=== PATIENT | male | born 1985 | race African-American/Black ===

== ENCOUNTER 2023-07-21 08:35 | Inpatient (IN) | payer OTHER ==
[2023-07-21 11:52] LABS: EOS % 4.5 % (0-4.5); HEMATOCRIT 42.5 % (35.4-49); HEMOGLOBIN 14.2 GM/dL (11.7-16.9); LYMPH % 40.7 % (8-40); MCH 31.2 pg (25.7-33.7); MCHC 33.5 g/dl (32.0-35.9); MEAN CELL VOLUME 93.2 fl (80-96); MEAN PLT VOLUME 7.4 fl (7.5-11.1); MONO % 10.8 % (3.8-10.2); PLATELET COUNT 360 10^3/uL (134-434); RBC 4.55 M/mm3 (4.00-5.60); RDW 13.1 % (11.9-15.9); WHITE BLOOD COUNT 7.6 K/mm3 (4.0-10.0)
[2023-07-21 12:08] LABS: POTASSIUM 4.5 mmol/L (3.5-5.1)
[2023-07-21 12:10] LABS: ALBUMIN 3.8 g/dl (3.4-5.0); CALCIUM 9.9 mg/dL (8.5-10.1)
[2023-07-21 12:11] LABS: BLOOD UREA NITROGEN 5.2 mg/dL (7-18)
[2023-07-21 12:14] LABS: CREATININE 0.9 mg/dL (0.55-1.3)
[2023-07-21 12:15] LABS: BILIRUBIN,TOTAL 0.4 mg/dL (0.2-1); TOT PROT 8.7 g/dl (6.4-8.2)
[2023-07-22 10:08] LABS: HIV INTERPRETATION NEGATIVE (NEGATIVE)
[2023-07-22 11:28] LABS: SYPHILIS W/ RPR CONF NON-REACTIVE (NONREACTIVE)
[2023-07-22 15:29] VITALS: BMI 26.3
[2023-07-22] MEDS ORDERED: guaiFENesin 200 MG/10 ML 10 ML UNIT-DOSE CUPS PO PRN (16:31)
[2023-07-23] MEDS: ENOXAPARIN NA (PORCINE) 40 MG/0.4 ML DISP.SYRIN SQ SCH (10:21)
[2023-07-23] MEDS: ACETAMINOPHEN 325 MG TABLET (FP) PO PRN (10:21)
[2023-07-25 09:24] LABS: BASO % 1.1 % (0-2.0); EOS % 4.9 % (0-4.5); HEMATOCRIT 43.6 % (35.4-49); HEMOGLOBIN 14.9 GM/dL (11.7-16.9); LYMPH % 38.3 % (8-40); MCH 31.5 pg (25.7-33.7); MCHC 34.2 g/dl (32.0-35.9); MEAN CELL VOLUME 92.1 fl (80-96); MEAN PLT VOLUME 7.8 fl (7.5-11.1); MONO % 9.9 % (3.8-10.2); NEUT % 45.8 % (42.8-82.8); PLATELET COUNT 348 10^3/uL (134-434); RBC 4.74 M/mm3 (4.00-5.60); RDW 13.1 % (11.9-15.9); WHITE BLOOD COUNT 7.6 K/mm3 (4.0-10.0)
[2023-07-25 09:40] LABS: POTASSIUM 4.4 mmol/L (3.5-5.1)
[2023-07-25 09:42] LABS: CALCIUM 9.1 mg/dL (8.5-10.1)
[2023-07-25 09:43] LABS: ALBUMIN 3.7 g/dl (3.4-5.0); BLOOD UREA NITROGEN 18.7 mg/dL (7-18)
[2023-07-25 09:46] LABS: CREATININE 0.8 mg/dL (0.55-1.3)
[2023-07-25 09:47] LABS: BILIRUBIN,TOTAL 0.8 mg/dL (0.2-1); TOT PROT 8.5 g/dl (6.4-8.2)
[2023-07-29 08:32] LABS: BASO % 0.9 % (0-2.0); EOS % 5.3 % (0-4.5); HEMATOCRIT 42.4 % (35.4-49); HEMOGLOBIN 14.1 GM/dL (11.7-16.9); LYMPH % 46.7 % (8-40); MCHC 33.3 g/dl (32.0-35.9); MEAN PLT VOLUME 7.9 fl (7.5-11.1); MONO % 13.5 % (3.8-10.2); NEUT % 33.6 % (42.8-82.8); PLATELET COUNT 348 10^3/uL (134-434); RBC 4.56 M/mm3 (4.00-5.60); RDW 12.9 % (11.9-15.9); WHITE BLOOD COUNT 6.8 K/mm3 (4.0-10.0)
[2023-07-29 08:47] LABS: POTASSIUM 4.2 mmol/L (3.5-5.1)
[2023-07-29 09:04] LABS: ALBUMIN 3.7 g/dl (3.4-5.0); CALCIUM 9.2 mg/dL (8.5-10.1)
[2023-07-29 09:06] LABS: CREATININE 0.8 mg/dL (0.55-1.3)
[2023-07-29 09:08] LABS: BILIRUBIN,TOTAL 0.5 mg/dL (0.2-1); TOT PROT 8.4 g/dl (6.4-8.2)
[2023-07-29] MEDS: ETHAMBUTOL HCL 400 MG TABLET PO SCH (09:38)
[2023-07-29] MEDS: PYRAZINAMIDE 500 MG TABLET PO SCH (09:38)
[2023-07-29] MEDS: ISONIAZID 300 MG TABLET (FP) PO SCH (09:38)
[2023-07-29] MEDS: RIFAMPIN 300 MG CAPSULE PO SCH (09:39)
[2023-07-29] MEDS: PYRIDOXINE HCL (B-6) 50 MG TABLET (FP) PO SCH (12:10)
[2023-07-29 14:38] VITALS: RESP 18
[2023-07-30 07:59] LABS: BASO % 0.7 % (0-2.0); EOS % 5.3 % (0-4.5); HEMATOCRIT 43.6 % (35.4-49); HEMOGLOBIN 14.5 GM/dL (11.7-16.9); LYMPH % 39.2 % (8-40); MCH 30.8 pg (25.7-33.7); MCHC 33.2 g/dl (32.0-35.9); MEAN PLT VOLUME 7.6 fl (7.5-11.1); MONO % 13.5 % (3.8-10.2); NEUT % 41.3 % (42.8-82.8); PLATELET COUNT 341 10^3/uL (134-434); RBC 4.69 M/mm3 (4.00-5.60); RDW 12.9 % (11.9-15.9); WHITE BLOOD COUNT 6.4 K/mm3 (4.0-10.0)
[2023-07-30 08:21] LABS: POTASSIUM 4.4 mmol/L (3.5-5.1)
[2023-07-30 08:30] LABS: CREATININE 0.8 mg/dL (0.55-1.3)
[2023-07-30 08:31] LABS: BILIRUBIN,TOTAL 0.7 mg/dL (0.2-1); TOT PROT 8.2 g/dl (6.4-8.2)
[2023-07-30 13:40] LABS: ALBUMIN 3.6 g/dl (3.4-5.0); BLOOD UREA NITROGEN 12.8 mg/dL (7-18)
[2023-07-31 08:13] LABS: BASO % 0.9 % (0-2.0); EOS % 4.9 % (0-4.5); HEMOGLOBIN 14.5 GM/dL (11.7-16.9); LYMPH % 36.4 % (8-40); MCH 32.2 pg (25.7-33.7); MCHC 35.4 g/dl (32.0-35.9); MEAN CELL VOLUME 91.2 fl (80-96); MEAN PLT VOLUME 7.9 fl (7.5-11.1); MONO % 11.9 % (3.8-10.2); NEUT % 45.9 % (42.8-82.8); PLATELET COUNT 328 10^3/uL (134-434); RBC 4.49 M/mm3 (4.00-5.60); WHITE BLOOD COUNT 7.5 K/mm3 (4.0-10.0)
[2023-07-31 08:45] LABS: POTASSIUM 4.5 mmol/L (3.5-5.1)
[2023-07-31 08:55] LABS: CALCIUM 9.2 mg/dL (8.5-10.1)
[2023-07-31 08:56] LABS: ALBUMIN 3.5 g/dl (3.4-5.0); BLOOD UREA NITROGEN 15.6 mg/dL (7-18); MAGNESIUM 2.1 mg/dL (1.8-2.4)
[2023-07-31 09:00] LABS: CREATININE 0.8 mg/dL (0.55-1.3)
[2023-07-31 09:01] LABS: BILIRUBIN,TOTAL 0.5 mg/dL (0.2-1); TOT PROT 8.1 g/dl (6.4-8.2)
[2023-08-01 05:54] VITALS: BP 119/79; PULSE 70; TEMP 98.1
[2023-08-01 09:06] LABS: BASO % 0.6 % (0-2.0); EOS % 5.1 % (0-4.5); HEMATOCRIT 42.4 % (35.4-49); LYMPH % 37.9 % (8-40); MCH 32.6 pg (25.7-33.7); MCHC 35.3 g/dl (32.0-35.9); MEAN CELL VOLUME 92.3 fl (80-96); MEAN PLT VOLUME 8.2 fl (7.5-11.1); MONO % 13.5 % (3.8-10.2); NEUT % 42.9 % (42.8-82.8); PLATELET COUNT 358 10^3/uL (134-434); RBC 4.59 M/mm3 (4.00-5.60); RDW 13.3 % (11.9-15.9); WHITE BLOOD COUNT 7.6 K/mm3 (4.0-10.0)
[2023-08-01 09:18] LABS: POTASSIUM 4.5 mmol/L (3.5-5.1)
[2023-08-01 09:28] LABS: ALBUMIN 3.8 g/dl (3.4-5.0); CALCIUM 9.2 mg/dL (8.5-10.1)
[2023-08-01 09:29] LABS: BLOOD UREA NITROGEN 11.8 mg/dL (7-18)
[2023-08-01 09:31] LABS: CREATININE 0.8 mg/dL (0.55-1.3)
[2023-08-01 09:32] LABS: TOT PROT 8.5 g/dl (6.4-8.2)
[2023-08-01 09:33] LABS: BILIRUBIN,TOTAL 0.5 mg/dL (0.2-1)
== END 2023-08-01 11:56 | disposition home or self-care (01) | DRG 137 ==
LOC: JER 08:35 → UNDOADMOB 12:33 → JERBED 12:33 → INTOOBSV 12:33 → JERBED 13:52 → OBSVTOIN 07-22 08:51 → J8W 07-22 14:24
PROVIDERS: ADMIT Internal Medicine; ATTEND Nurse Practitioner Acute Care
DX: A15.9 Respiratory tuberculosis unspecified (principal); R04.2 Hemoptysis; A15.0 Tuberculosis of lung; M79.10 Myalgia, unspecified site
CPT/HCPCS: 0241U-QW; 36415; 71045-TC-FY; 71250-TC; 80053; 83615; 83735; 84207; 84484; 85025; 86480; 86780; 87116; 87206; 87389; 87556; 93005; 93010; 99285-25; G0378